=== PATIENT | female | born 1945 | race American Indian/Alaskan Native ===

== ENCOUNTER 2016-10-14 11:12 | Outpatient (CLI) | payer MEDICARE, OTHER ==
--- NOTE | 2016-10-15 14:27 | Vascular Lab Report ---
LOWER EXTREMITY ARTERIAL DUPLEX: REASON FOR EXAM: Peripheral arterial disease. COMMENTS ON THE RIGHT: Biphasic waveforms are seen proximally. Biphasic waveforms are seen distally. No significant velocity gradients are identified. No focal significant plaque is identified. Findings are consistent with normal perfusion. Findings are consistent with the ability to heal distal wounds. COMMENTS ON THE LEFT: Biphasic waveforms are seen proximally. Biphasic waveforms are seen distally. No significant velocity gradients are identified. No focal significant plaque is identified. Findings are consistent with normal perfusion. Findings are consistent with the ability to heal distal wounds. IMPRESSION: RIGHT: Essentially normal arterial flow. LEFT:Essentially normal arterial flow.
== END 2016-10-14 11:13 | disposition home or self-care (01) ==
LOC: VAS 11:12
DX: M79.605 Pain in left leg (principal); M79.604 Pain in right leg
CPT/HCPCS: 93925

== ENCOUNTER 2017-01-13 09:50 | Outpatient (CLI) | payer MEDICARE, OTHER ==
--- NOTE | 2017-01-14 09:57 | Vascular Lab Report ---
LOWER EXTREMITY VENOUS DUPLEX: REASON FOR EXAM: Bilateral leg pain. COMMENTS ON THE RIGHT: All veins visualized are freely compressible without evidence of internal echogenicity. Flow is spontaneous and phasic throughout. COMMENTS ON THE LEFT: All veins visualized are freely compressible without evidence of internal echogenicity. Flow is spontaneous and phasic throughout. IMPRESSION: No evidence of acute or chronic deep venous thrombosis in either lower extremity.
== END 2017-01-13 09:51 | disposition home or self-care (01) ==
LOC: VAS 09:50
DX: M79.605 Pain in left leg (principal)
CPT/HCPCS: 93970

== ENCOUNTER 2017-03-04 11:10 | Outpatient (CLI) | payer MEDICARE ==
--- NOTE | 2017-03-04 13:22 | Mammography Report ---
BILATERAL DIGITAL SCREENING MAMMOGRAM with CAD : 03/04/17 11:10:00 CLINICAL: Routine screening. COMPARISON:01/29/16 and 01/08/15 FINDINGS: The breasts are heterogeneously dense, which may obscure small masses.A previously confirmed right lower inner 3 cm cyst is unchanged. No mass, architectural distortion or suspicious calcifications. IMPRESSION: No mammographic evidence of malignancy. BI-RADS CATEGORY: 2 -- Benign RECOMMENDATION: Routine mammographic screening in one year. COMMENT: Patient follow-up letters are generated by our [employer] application.
== END 2017-03-04 11:11 | disposition home or self-care (01) ==
LOC: SPVWC 11:10
DX: Z12.31 Encounter for screening mammogram for malignant neoplasm of breast (principal)
CPT/HCPCS: 77067; G0202

== ENCOUNTER 2017-04-13 10:14 | Outpatient (CLI) | payer MEDICARE ==
--- NOTE | 2017-04-13 11:12 | XRay Report ---
Right ankle, right foot: Swelling. There is mild generalized soft tissue swelling around the ankle and foot. The bones are aligned and the joints are preserved. The bones appear relatively well-mineralized. 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 Impressions: Nonspecific soft tissue swelling.
== END 2017-04-13 10:15 | disposition home or self-care (01) ==
LOC: SPVIMAG 10:14
DX: M25.474 Effusion, right foot (principal); M25.571 Pain in right ankle and joints of right foot

== ENCOUNTER 2017-05-20 10:43 | Outpatient (CLI) | payer MEDICARE ==
--- NOTE | 2017-05-20 13:18 | Ultrasound Report ---
RIGHT BREAST ULTRASOUND: 05/20/17 10:43:00 CLINICAL: New palpable right breast lump. Negative mammogram 03/04/17 COMPARISON: 03/04/17 mammogram and 03/17/16 right breast ultrasound. FINDINGS: Ultrasound of the upper inner right breast was performed and demonstrated a cluster of benign cysts with low level internal echoes. The largest is at 2 o'clock 6 cm from the nipple, has a septation and measures 2.8 x 1.8 x 2.4 cm. A bilobed cyst at 1 o'clock 6 cm from the nipple measures 0.9 x 0.9 x 0.6 cm and a benign subareolar cyst at 3 o'clock measures 1.0 x 0.5 x 0.9 cm. No solid mass. IMPRESSION: Benign cysts right breast. BI-RADS 2 - - Benign RECOMMENDATION: Routine mammographic screening.
== END 2017-05-20 10:44 | disposition home or self-care (01) ==
LOC: SPVWC 10:43
DX: N60.01 Solitary cyst of right breast (principal); N63 Unspecified lump in breast

== ENCOUNTER 2018-04-01 10:23 | Outpatient (CLI) | payer MEDICARE ==
--- NOTE | 2018-04-02 08:35 | Mammography Report ---
BILATERAL DIGITAL SCREENING MAMMOGRAM with CAD: 04/01/18 10:23:00 CLINICAL: Routine screening.History of cysts. COMPARISON:03/04/17 and mammograms going back to 2008. FINDINGS: The breasts are heterogeneously dense, which may obscure small masses. Right asymmetries on the CC view require additional imaging. No architectural distortion or suspicious calcifications.The left breast is negative. IMPRESSION: Right asymmetries requiring further workup. BI-RADS CATEGORY: 0 -- Additional Imaging Evaluation Required RECOMMENDATION: Recall for right mediolateral and spot magnification CC views and right breast ultrasound if needed. ACR BI-RADS MAMMOGRAPHIC CODES: 0 = Needs additional imaging evaluation; 1 = Negative; 2 = Benign; 3 = Probably benign; 4 = Suspicious; 5 = Malignant; 6 = Known biopsy-proven malignancy COMMENT: 1. Dense breast tissue, i.e., adenosis, fibrocystic changes, etc., may obscure an underlying neoplasm. 2. Approximately 10% of cancers are not detected with mammography. 3. A negative mammography report should not delay biopsy if a clinically suspicious mass is present. COMMENT: Patient follow-up letters are generated via our [employer] application.
== END 2018-04-01 10:24 | disposition home or self-care (01) ==
LOC: SPVWC 10:23
DX: Z12.31 Encounter for screening mammogram for malignant neoplasm of breast (principal)
CPT/HCPCS: 77067

== ENCOUNTER 2018-04-13 13:21 | Outpatient (CLI) | payer MEDICARE ==
--- NOTE | 2018-04-13 14:21 | Mammography Report ---
RIGHT DIGITAL DIAGNOSTIC MAMMOGRAM : 04/13/18 13:21:00 CLINICAL: Recalled for asymmetries. COMPARISON:04/01/18 screening FINDINGS: Additional mammographic views were performed and are negative.Satisfactory effacement of asymmetries. Scattered calcifications are stable with no suspicious forms. IMPRESSION: No mammographic evidence of malignancy. BI-RADS CATEGORY: 2 - - Benign RECOMMENDATION: Routine mammographic screening in one year. ACR BI-RADS MAMMOGRAPHIC CODES: 0 = Needs additional imaging evaluation; 1 = Negative; 2 = Benign; 3 = Probably benign; 4 = Suspicious; 5 = Malignant; 6 = Known biopsy-proven malignancy COMMENT: 1. Dense breast tissue, i.e., adenosis, fibrocystic changes, etc., may obscure an underlying neoplasm. 2. Approximately 10% of cancers are not detected with mammography. 3. A negative mammography report should not delay biopsy if a clinically suspicious mass is present. COMMENT: Patient follow-up letters are generated via our [employer] application.
== END 2018-04-13 13:22 | disposition home or self-care (01) ==
LOC: SPVWC 13:21
DX: N64.89 Other specified disorders of breast (principal); Z88.6 Allergy status to analgesic agent; Z88.1 Allergy status to other antibiotic agents

== ENCOUNTER 2018-11-09 10:34 | Outpatient (CLI) | payer MEDICARE ==
--- NOTE | 2018-11-09 14:10 | Vascular Lab Report ---
FINAL REPORT EXAM: VL CAROTID DUPLEX BILAT HISTORY: CAROTID BRUIT TECHNIQUE: Carotid ultrasound. Degree of carotid stenosis calculated by indirect methods via the pea k systolic velocities of the ICA and CCA and reference with the society of Radiologist and Ultrasound consensus conference radiology 2003. PRIORS: None currently available. FINDINGS: RIGHT CCA, ICA, and ECA (cm/s): 68, 124, and 86. Ratio = 1.82. LEFT CCA, ICA, and ECA (cm/s): 87, 108, and 109. Ratio = 1.24. Mild plaque in both carotid bulbs and right proximal ICA. Hron-an-wnyklwse plaque in the left proxima l ICA. Both vertebral arteries demonstrate antegrade flow. Normal spectral rhythm is identified. IMPRESSION: No hemodynamically significant (> 50%) stenosis noted based on the ratios, velocities, and color D oppler images.
== END 2018-11-09 10:35 | disposition home or self-care (01) ==
LOC: VAS 10:34
DX: R09.89 Other specified symptoms and signs involving the circulatory and respiratory systems (principal)
CPT/HCPCS: 93880

== ENCOUNTER 2019-03-14 09:36 | Outpatient (CLI) | payer MEDICARE ==
--- NOTE | 2019-03-14 12:20 | Ultrasound Report ---
Complete abdominal ultrasound: Upper abdominal pain. Transabdominal imaging demonstrates a relatively normal sized pancreatic body and head with some increased echogenicity. The tail is not well-visualized. The liver appears to be generally unremarkable in size, contour, and echogenicity. The gallbladder is echogenically unremarkable. The CBD diameter is 5.5 mm. The spleen is unremarkable. The right renal length is 11.2 cm. There is no evidence of obstructive uropathy or mass. The parenchymal thickness is slightly thin. The left kidney has a length of 14.4 cm and is primarily either replaced cysts or severe hydronephrosis with virtually no evidence of parenchymal tissue. No obvious calculi. The proximal abdominal aorta diameter is 18 mm, mid diameter of 16 mm, distal diameter of 15 mm, right iliac diameter a 10 mm, left diameter 11 mm. Impressions: 1. No acute or abnormal abdominal findings. Fatty pancreas. 2. Abnormal left kidney which is either grossly cystic or severely hydronephrotic. History of nonfunctioning left kidney.
== END 2019-03-14 09:37 | disposition home or self-care (01) ==
LOC: SPVWC 09:36
PROVIDERS: ATTEND Internal Medicine Gastroenterology
DX: N28.89 Other specified disorders of kidney and ureter (principal); K30 Functional dyspepsia
CPT/HCPCS: 76700

== ENCOUNTER 2019-04-05 10:00 | Outpatient (CLI) | payer MEDICARE ==
--- NOTE | 2019-04-05 15:01 | Mammography Report ---
BILATERAL DIGITAL SCREENING MAMMOGRAM WITH CAD INDICATION: Routine screening mammography. TECHNIQUE: Digital bilateral 2D mammography was obtained in the craniocaudal and mediolateral obliq ue projections. This examination was interpreted with the benefit of Computer-Aided Detection analysi s. COMPARISON: 04/01/2018 and 03/04/2017 FINDINGS: Breast Density: The breasts are heterogeneously dense, which may obscure small masses. There is no evidence of dominant mass, suspicious calcifications or architectural distortion in eith er breast. IMPRESSION:No mammographic evidence of malignancy. BI-RADS Category 1: Negative. No mammographic evidence of malignancy. Recommend routine screening m ammography in one year. A "normal" or negative report should not discourage follow up or biopsy of a clinically significant f inding. A written summary of these findings will be mailed to the patient. The patient will be entered into a mammography reporting system which will generate a reminder letter for the patient's next appointmen t at the appropriate interval. The [employer] recommends yearly mammograms starting at age 40 and continuing as [place] as a woman is in good health. Breast MRI is recommended for women with an approximate 20-25% or greater lifetime risk of breast cancer, including women with a strong family history of breast or ova aleja cancer or who have been treated for Hodgkin's disease. Signer Name: Darren Barrios MD Signed: 04/05/2019 2:57 PM Workstation Name: [id number]
== END 2019-04-05 10:01 | disposition home or self-care (01) ==
LOC: SPVWC 10:00
PROVIDERS: ATTEND Family Medicine
DX: Z12.31 Encounter for screening mammogram for malignant neoplasm of breast (principal)
CPT/HCPCS: 77067

== ENCOUNTER 2019-09-05 12:05 | Outpatient (CLI) | payer MEDICARE ==
--- NOTE | 2019-09-05 15:24 | Vascular Lab Report ---
DUPLEX DOPPLER LOWER EXTREMITY VEINS, RIGHT INDICATION / CLINICAL INFORMATION: R60.0 EDEMA. TECHNIQUE: Duplex doppler imaging was performed through the veins of the right lower extremity using venous comp ression and other maneuvers. COMPARISON: None available. FINDINGS: COMMON FEMORAL VEIN: Negative. FEMORAL VEIN: Negative. POPLITEAL VEIN: Negative. CALF VEINS: Negative. ADDITIONAL FINDINGS: None. IMPRESSION: 1. No sonographic evidence for DVT in the right lower extremity. Signer Name: Jignesh Pinedo MD Signed: 09/05/2019 3:20 PM Workstation Name: [email or web address]
== END 2019-09-05 12:06 | disposition home or self-care (01) ==
LOC: VAS 12:05
PROVIDERS: ATTEND Urology
DX: R60.0 Localized edema (principal)

== ENCOUNTER 2019-11-08 10:37 | Outpatient (CLI) | payer MEDICARE ==
--- NOTE | 2019-11-08 14:57 | Mammography Report ---
BONE DEXA CLINICAL: Postmenopausal. TECHNIQUE: 2 site bone DEXA performed on an Hologic scanner. FINDINGS: The average BMD of the lumbar spine L1-L4 is 1.062g/cm squared with a T score of -0.8 and a Z score o f +1.8. The average total BMD of the left hip is 0.933 g/cm squared with a T score of -0.6and a Z score of +0 .6. IMPRESSION: 1. WHO classification: Normal with average fracture risk based on spine measurements. 2. WHO classification Osteopenia with increased fracture risk based on left hip measurements. RECOMMENDATION: Clinical correlation and routine screening. Definitions: BMD equal bone mineral density T score = BMD related to peak bone mass of young adult (Green expressed an standard deviation) Z score = age-matched BMD expressed in SD World health organization (WHO) diagnostic criteria Normal T score greater than equal to 1 standard deviation Osteopenia T score between -1 and -2.4 standard deviation Osteoporosis T score -2.5 standard deviation or below. Note: BMD is not the only risk factor for fracture; also consider factors such as the patient's age, risk of falling, previous osteoporotic fracture, family history of osteoporotic fractures, current sm oker and low body weight. Z scores are not calculated if greater than 80 years of age. Signer Name: Darren Barrios MD Signed: 11/08/2019 2:53 PM Workstation Name: [id number]
== END 2019-11-08 10:38 | disposition home or self-care (01) ==
LOC: SPVWC 10:37
PROVIDERS: ATTEND Obstetrics & Gynecology
DX: Z78.0 Asymptomatic menopausal state (principal)
CPT/HCPCS: 77080

== ENCOUNTER 2020-04-25 08:38 | Outpatient (CLI) | payer MEDICARE ==
--- NOTE | 2020-04-25 09:57 | Mammography Report ---
DIGITAL SCREENING MAMMOGRAM WITH CAD, 04/25/2020 INDICATION: Routine screening mammography. TECHNIQUE: Digital bilateral 2D mammography was obtained in the craniocaudal and mediolateral obliq ue projections. This examination was interpreted with the benefit of Computer-Aided Detection analysi s. COMPARISON: 04/05/2019, 04/13/2018, 04/01/2018 FINDINGS: Breast Density: The breasts are heterogeneously dense, which may obscure small masses. There is no evidence of dominant mass, suspicious calcifications or architectural distortion in eithe r breast. IMPRESSION: Follow up recommendation: Routine yearly BI-RADS Category 1: Negative. A "normal" or negative report should not discourage follow up or biopsy of a clinically significant f inding. A written summary of these findings will be mailed to the patient. The patient will be entered into a mammography reporting system which will generate a reminder letter for the patient's next appointmen t at the appropriate interval. The [employer] recommends yearly mammograms starting at age 40 and continuing as [place] as a woman is in good health. Breast MRI is recommended for women with an approximate 20-25% or greater lifetime risk of breast cancer, including women with a strong family history of breast or ova aleja cancer or who have been treated for Hodgkin's disease. Signer Name: Osman Chen MD Signed: 04/25/2020 9:53 AM Workstation Name: [id number]
== END 2020-04-25 08:39 | disposition home or self-care (01) ==
LOC: SPVWC 08:38
PROVIDERS: ATTEND Urology
DX: Z12.31 Encounter for screening mammogram for malignant neoplasm of breast (principal)
CPT/HCPCS: 77067

== ENCOUNTER 2021-04-29 09:55 | Outpatient (CLI) | payer MEDICARE ==
--- NOTE | 2021-04-29 11:11 | Mammography Report ---
DIGITAL SCREENING MAMMOGRAM WITH CAD, 04/29/2021 CLINICAL INFORMATION / INDICATION: Routine screening mammography. SCREENING MAMMO TECHNIQUE: Digital bilateral 2D mammography was obtained in the craniocaudal and mediolateral obliqu e projections. This examination was interpreted with the benefit of Computer-Aided Detection analysis . COMPARISON: 04/05/2019, 04/25/2020 FINDINGS: Breast Density: The breasts are heterogeneously dense, which may obscure small masses. No dominant mass, suspicious calcifications, or architectural distortion in either breast. There is a benign small nodule in the medial right breast, unchanged from multiple prior exams. No interval change. IMPRESSION: No mammographic evidence of malignancy. Follow up recommendation: Routine yearly BI-RADS Category 2: Benign. A "normal" or negative report should not discourage follow up or biopsy of a clinically significant f inding. A written summary of these findings will be mailed to the patient. The patient will be entered into a mammography reporting system which will generate a reminder letter for the patient's next appointmen t at the appropriate interval. The [employer] recommends yearly mammograms starting at age 40 and continuing as [place] as a woman is in good health. Breast MRI is recommended for women with an approximate 20-25% or greater lifetime risk of breast cancer, including women with a strong family history of breast or ova aleja cancer or who have been treated for Hodgkin's disease. Signer Name: Jasmina Jackman MD Signed: 04/29/2021 11:07 AM Workstation Name: [id number]
== END 2021-04-29 09:56 | disposition home or self-care (01) ==
LOC: SPVWC 09:55
PROVIDERS: ATTEND Urology
DX: Z12.31 Encounter for screening mammogram for malignant neoplasm of breast (principal)
CPT/HCPCS: 77067

== ENCOUNTER 2022-04-30 13:06 | Outpatient (CLI) | payer MEDICARE ==
--- NOTE | 2022-05-01 14:36 | Mammography Report ---
DIGITAL SCREENING MAMMOGRAM WITH CAD, 04/30/2022 CLINICAL INFORMATION / INDICATION: Routine screening mammography. TECHNIQUE: Digital bilateral 2D mammography was obtained in the craniocaudal and mediolateral obliqu e projections. This examination was interpreted with the benefit of Computer-Aided Detection analysis . COMPARISON: 04/29/2021, 04/25/2020 FINDINGS: Breast Density: The breasts are heterogeneously dense, which may obscure small masses. No dominant mass, suspicious calcifications, or architectural distortion in either breast. Bilateral benign calcifications are unchanged. The previously seen medial right breast nodule is smal ler and less distinct. No other significant interval changes. IMPRESSION: No mammographic evidence of malignancy. Follow up recommendation: Routine yearly screening mammogram. BI-RADS Category 2: BENIGN. A "normal" or negative report should not discourage follow up or biopsy of a clinically significant f inding. A written summary of these findings will be mailed to the patient. The patient will be entered into a mammography reporting system which will generate a reminder letter for the patient's next appointmen t at the appropriate interval. The [employer] recommends yearly mammograms starting at age 40 and continuing as l [place] as a woman is in good health. Breast MRI is recommended for women with an approximate 20-25% or greater lifetime risk of breast cancer, including women with a strong family history of breast or ova aleja cancer or who have been treated for Hodgkin's disease. Signer Name: Osman Chen MD Signed: 05/01/2022 2:32 PM Workstation Name: [id number]
== END 2022-04-30 13:07 | disposition home or self-care (01) ==
LOC: SPVWC 13:06
PROVIDERS: ATTEND Urology
DX: Z12.31 Encounter for screening mammogram for malignant neoplasm of breast (principal)
CPT/HCPCS: 77067